=== PATIENT | female | born 1985 | race Caucasian/White ===

== ENCOUNTER 2018-11-29 07:31 | Inpatient (IN) ==
[2018-11-29] MEDS ORDERED: OXYTOCIN 30 UNITS/500 ML BAG IV PRN ×2 (08:30→08:33)
[2018-11-29 08:56] LABS: Hematocrit (blood only) 39.6 % (37-47); Hemoglobin 13.6 g/dL (12.0-16.0); Mean Corpuscular Volume 95.9 fL (80-100); Mean Platelet Volume 12.5 fL (7.4-10.4); Platelet Count 144 K/uL (130-400); RDW Coefficient of Variation 14.5 % (11.5-14.5); RDW Standard Deviation 49.7 fL (36.4-46.3); Red Blood Count 4.13 M/uL (4.2-5.4); White Blood Count 10.96 K/uL (4.8-10.8)
[2018-11-29 09:07] LABS: Mean Corpuscular Hgb Conc 34.3 g/dL (32-36)
[2018-11-29] MEDS: LACTATED RINGER'S 1,000 ML IV PRN ×3 (09:14→20:26)
--- NOTE | 2018-11-29 09:17 | History & Physical Report ---
Date of Service November 29, 2018 Assessment & Plan (1) Unfavorable cervix in term : (2) Post term over 40 weeks: Plan to start with pitocin with neal in situ. I pulled on in gently and it did not budge. Fetus category one. arom as indicated. epidural on request. anticipate . History of Present Illness Chief Complaint: induction Primary Care Provider: Nisha Mcrae MD Patient is a 32yowf G1Po with iup at 41 1/7 weeks who presents to labor and delivery for induction today secondary to postdates. Dating by lmp and first trimester ultrasound. Had neal bulb placed last night. Ntoes some bleeding with the neal and some cramping. Did not fall out. essentially uncomplicated. Patient with family hx of retinitis pigmentosa. Had [facility] [place] and baby with be evaluated in childhood. O+/ab-/pap nl/rni/rprnr/hepb-/hiv-/g/c/t-/gtt x 2 nl/qs neg/gbs neg Allergies Allergy/AdvReac Type Severity Reaction Status Date / Time No Known Drug Allergies Allergy Verified 11/28/18 10:29 Home Medications Home Medications Medication Instructions Recorded Confirmed Type 1 tab PO DAILY 11/19/18 11/29/18 History vitamin,calcium,tfmguzwr-ynbi-llmyc acid tablet Patient History Medical History History of bladder infections History of dysuria History of menorrhagia Family History Aunt Appendiceal carcinoid tumor Father Depression Grandfather (Paternal) Lung cancer Non-Hodgkin lymphoma Grandfather (Maternal) Non-Hodgkin lymphoma Social History Preferred Language: Armenian Communication Ability: Effective Manager Hris Required: No Beliefs That Will Affect Care: None marital status: Current Living Situation: Spouse Other Information That Helps Us Care for You: No Feels Safe at Home: Yes Safety Concerns: Feels Safe At This Time Smoking Status: Never smoker Second Hand Exposure: No ; Hx Alcohol Use: No Hx Substance Use: No OB History g1--present [employer] History no abnl paps, no stds Review of Systems All systems reviewed & are unremarkable except as noted in HPI & below Physical Exam Cardiovascular: Extremities: + edema (trace) Gastrointestinal (Abdomen): soft, gravid, nt Genitourinary: neal still in cx--1/l/h/firm/mid toco--danielle efm--125 with mod variability, accels to 150s no decels Results & Data Vital Signs (Past 12 Hours) Vital Signs Temp Pulse Resp BP 11/29/18 07:51 36.5 C 91 H 20 117/68 11/29/18 07:43 36.5 C 91 H 18 117/68
[2018-11-29] MEDS ORDERED: ePHEDrine sulfate 50 MG/ML AMP ONE (17:11)
[2018-11-29] MEDS ORDERED: BUPIVACAINE 0.25% 30 ML VIAL ONE (17:11)
[2018-11-29] MEDS ORDERED: fentaNYL citrate 100 MCG/2 ML VIAL ONE (17:12)
[2018-11-29] MEDS ORDERED: fentaNYL 2MCG/ML ROPIV 1.25MG/ML 100 ML BAG EPI ONE (17:12)
[2018-11-29] MEDS ORDERED: NALOXONE HCL 0.4 MG/1 ML VIAL/CARP IV PRN (17:23)
[2018-11-29] MEDS ORDERED: NALOXONE HCL 1 MG in SODIUM CHLORIDE 0.9% 1000ML 1,000 ML IV PRN (17:23)
[2018-11-29] MEDS ORDERED: ePHEDrine sulfate 50 MG/ML AMP IV PRN (17:23)
[2018-11-29] MEDS ORDERED: ONDANSETRON INJ 2 MG/ML 2 ML VIAL IV PRN (17:23)
[2018-11-29] MEDS ORDERED: DiphenhydrAMINE HCL 50 MG/ML VIAL IV PRN (17:23)
[2018-11-29] MEDS ORDERED: NALBUPHINE HCL INJ 10 MG/ML AMP IV PRN (17:23)
--- NOTE | 2018-11-29 17:25 | Anesthesiology Consultation ---
Date of Service November 29, 2018 Assessment & Plan (1) Encounter for pre-operative examination: Chart Review Chart Review: Patient NOT seen in Pre Admission Testing and Acceptable Risk for Labor Epidural Consults Requested none History Height/Weight Height: 5 ft 5 in Weight: 110.677 kg Allergies Allergy/AdvReac Type Severity Reaction Status Date / Time No Known Drug Allergies Allergy Verified 11/28/18 10:29 Medications Home Medications Medication Instructions Recorded Confirmed Last Taken 1 tab PO DAILY 11/19/18 11/29/18 Unknown vitamin,calcium,kdxkzely-smkd-bdolx acid tablet Active Medications Generic Name Dose Route Start Last Admin Trade Name Freq PRN Reason Stop Dose Admin Lactated Ringer's 1,000 mls @ 125 mls/hr 11/29/18 08:30 11/29/18 17:10 Lr IV 12/01/18 08:29 999 mls/hr .Q8H PRN Infusion L&D Protocol Protocol Oxytocin 30 units in 500 mls @ 15 mls/hr 11/29/18 08:33 11/29/18 15:00 Pitocin IV 12/01/18 08:32 0.9 units/hr .Q24H PRN 15 mls/hr Labor Induction/Augmentation Titration Protocol 0.9 UNITS/HR Past Medical History Medical History History of bladder infections History of dysuria History of menorrhagia Exercise / Class Metabolic Activity II 4-5 Yardwork/Stairs/Walk up hill Past Family History Family History Aunt Appendiceal carcinoid tumor Father Depression Grandfather (Paternal) Lung cancer Non-Hodgkin lymphoma Grandfather (Maternal) Non-Hodgkin lymphoma Past Surgical History none Past Anesthesia History No Hx of Anesthesia Complications and No Family Hx of Anesthesia Complications History of PONV No Hx of PONV and No Hx of Motion Sickness Social History Smoking Status: Never smoker Hx Alcohol Use: No Hx Substance Use: No Physical Exam Vital Signs Last Vital Signs Temp 36.9 C 11/29/18 14:56 Pulse 77 11/29/18 17:26 Resp 18 11/29/18 14:56 BP 124/69 11/29/18 17:26 Pulse Ox 100 11/29/18 17:26 Testing Laboratory Results 11/29/18 08:46
--- NOTE | 2018-11-29 18:31 | Labor Progress Brief Note ---
Date of Service November 29, 2018 Subjective comfortable after epidural Assessment & Plan (1) Post term over 40 weeks: continue pitocin for induction. fetus category one. Physical Exam Constitutional: WD/WN, vitals as above Genitourinary: cx--4/50/-2 arom--clear toco--q2-3min, pit at 15 efm--120 wtih moderate variability, accels to 150s, no decels Results & Data Vital Signs (Past 12 Hours) Vital Signs Temp Pulse Resp BP Pulse Ox 11/29/18 18:23 67 99 11/29/18 18:20 61 118/61 11/29/18 18:18 69 100 11/29/18 18:13 63 100 11/29/18 18:08 64 99 11/29/18 18:04 60 128/62 11/29/18 18:03 67 100 11/29/18 18:00 20 11/29/18 17:58 77 100 11/29/18 17:57 73 127/59 L 11/29/18 17:55 69 20 125/57 L 11/29/18 17:53 73 124/58 L 100 11/29/18 17:51 74 120/62 11/29/18 17:50 20 11/29/18 17:49 81 121/60 11/29/18 17:48 72 100 11/29/18 17:47 71 122/58 L 11/29/18 17:45 36.7 C 61 20 134/61 11/29/18 17:43 81 122/76 100 11/29/18 17:42 69 113/60 11/29/18 17:38 69 100 11/29/18 17:33 76 100 11/29/18 17:26 77 124/69 100 11/29/18 14:57 81 136/80 11/29/18 14:56 36.9 C 18 11/29/18 14:12 36.9 C 78 20 128/73 11/29/18 12:45 74 122/77 11/29/18 11:54 36.4 C L 75 20 115/56 L 11/29/18 11:10 68 129/62 11/29/18 10:15 82 20 124/72 11/29/18 09:23 83 20 121/73 11/29/18 07:51 36.5 C 91 H 20 117/68 11/29/18 07:43 36.5 C 91 H 18 117/68
--- NOTE | 2018-11-29 22:31 | Labor Progress Brief Note ---
Date of Service November 29, 2018 Subjective Reason For Note: Routine Evaluation comfortable after epidural Assessment & Plan (1) Post term over 40 weeks: continue pitocin for induction. fetus category one. Cervix unchanged - IUPC placed Physical Exam Genitourinary: Manual OB Exam: + cervical dilation 4 cm, + cervical effacement 50% and + station -2 OB Exam Monitor Tracing: + external FHT monitor used, + intra-uterine pressure catheter used and + category I Results & Data Vital Signs (Past 12 Hours) Vital Signs Temp Pulse Resp BP Pulse Ox 11/29/18 22:23 77 98 11/29/18 22:20 59 L 131/85 11/29/18 22:18 88 98 11/29/18 22:13 65 97 11/29/18 22:08 75 99 11/29/18 22:05 55 L 119/65 11/29/18 22:03 59 L 98 11/29/18 21:58 60 98 11/29/18 21:53 59 L 99 11/29/18 21:49 57 L 116/67 11/29/18 21:48 61 99 11/29/18 21:43 64 99 11/29/18 21:38 74 99 11/29/18 21:34 57 L 112/60 11/29/18 21:33 58 L 99 11/29/18 21:28 77 99 11/29/18 21:25 36.8 C 20 11/29/18 21:23 74 100 11/29/18 21:20 61 125/61 11/29/18 21:18 70 100 11/29/18 21:13 65 99 11/29/18 21:08 59 L 99 11/29/18 21:05 59 L 116/55 L 11/29/18 21:03 60 100 11/29/18 20:58 72 100 11/29/18 20:53 63 100 11/29/18 20:49 59 L 113/58 L 11/29/18 20:48 63 100 11/29/18 20:43 59 L 100 11/29/18 20:38 71 100 11/29/18 20:35 57 L 112/58 L 11/29/18 20:33 58 L 100 11/29/18 20:29 20 11/29/18 20:28 63 99 11/29/18 20:23 57 L 99 11/29/18 20:20 56 L 113/60 11/29/18 20:18 56 L 100 11/29/18 20:13 62 100 11/29/18 20:08 60 100 11/29/18 20:05 56 L 118/61 11/29/18 20:03 56 L 99 11/29/18 19:59 36.8 C 20 11/29/18 19:58 81 99 11/29/18 19:53 67 100 11/29/18 19:49 76 117/64 11/29/18 19:48 65 100 11/29/18 19:43 57 L 100 11/29/18 19:38 73 100 11/29/18 19:34 60 118/65 11/29/18 19:33 59 L 100 11/29/18 19:30 20 11/29/18 19:28 68 100 11/29/18 19:23 68 100 11/29/18 19:20 54 L 121/66 11/29/18 19:18 60 99 11/29/18 19:13 64 100 11/29/18 19:08 59 L 100 11/29/18 19:05 70 116/62 11/29/18 19:03 67 100 11/29/18 18:58 65 100 11/29/18 18:53 62 100 11/29/18 18:50 73 121/66 11/29/18 18:48 61 99 11/29/18 18:43 63 100 11/29/18 18:38 79 100 11/29/18 18:36 64 123/60 11/29/18 18:33 62 100 11/29/18 18:32 36.9 C 11/29/18 18:30 20 11/29/18 18:28 67 100 11/29/18 18:23 67 99 11/29/18 18:20 61 118/61 11/29/18 18:18 69 100 11/29/18 18:13 63 100 11/29/18 18:08 64 99 11/29/18 18:04 60 128/62 11/29/18 18:03 67 100 11/29/18 18:00 20 11/29/18 17:58 77 100 11/29/18 17:57 73 127/59 L 11/29/18 17:55 69 20 125/57 L 11/29/18 17:53 73 124/58 L 100 11/29/18 17:51 74 120/62 11/29/18 17:50 20 11/29/18 17:49 81 121/60 11/29/18 17:48 72 100 11/29/18 17:47 71 122/58 L 11/29/18 17:45 36.7 C 61 20 134/61 11/29/18 17:43 81 122/76 100 11/29/18 17:42 69 113/60 11/29/18 17:38 69 100 11/29/18 17:33 76 100 11/29/18 17:26 77 124/69 100 11/29/18 14:57 81 136/80 11/29/18 14:56 36.9 C 18 11/29/18 14:12 36.9 C 78 20 128/73 11/29/18 12:45 74 122/77 11/29/18 11:54 36.4 C L 75 20 115/56 L 11/29/18 11:10 68 129/62
--- NOTE | 2018-11-30 01:16 | Labor Progress Brief Note ---
Date of Service November 30, 2018 Subjective comfortable Assessment & Plan (1) Post term over 40 weeks: May be on the verge of making some change. cx are adequate since placement of iupc at 10:30 pm. explained to patient that as long as all remains ok, would plan to contiue current management for minimum 12 hours. They expressunderstanding. Physical Exam Constitutional: WD/WN, vitals as above Genitourinary: cx-5/75/-3, some molding toco--q2min, pit 19, mvus >200 since plaement of iupc efm--115 with mod variability, accels to 140s, no decels, +scalp stim Results & Data Vital Signs (Past 12 Hours) Vital Signs Temp Pulse Resp BP Pulse Ox 11/30/18 01:08 79 98 11/30/18 01:05 81 138/81 11/30/18 01:03 81 100 11/30/18 00:58 69 98 11/30/18 00:53 69 98 11/30/18 00:49 61 119/76 11/30/18 00:48 58 L 98 11/30/18 00:43 66 98 11/30/18 00:38 83 98 11/30/18 00:35 60 122/74 11/30/18 00:33 65 97 11/30/18 00:28 65 97 11/30/18 00:23 58 L 97 11/30/18 00:19 70 127/73 11/30/18 00:18 69 97 11/30/18 00:13 80 98 11/30/18 00:08 82 98 11/30/18 00:04 81 126/76 11/30/18 00:03 76 98 11/30/18 00:00 36.9 C 20 11/29/18 23:58 70 98 11/29/18 23:53 65 97 11/29/18 23:50 68 119/72 11/29/18 23:48 66 98 11/29/18 23:43 59 L 96 11/29/18 23:38 67 97 11/29/18 23:35 80 117/69 11/29/18 23:33 57 L 98 11/29/18 23:30 20 11/29/18 23:28 73 98 11/29/18 23:23 57 L 97 11/29/18 23:20 58 L 123/70 11/29/18 23:18 55 L 96 11/29/18 23:13 82 98 11/29/18 23:08 63 96 11/29/18 23:04 76 123/71 11/29/18 23:03 59 L 96 11/29/18 22:58 67 97 11/29/18 22:53 74 96 11/29/18 22:50 36.7 C 71 20 123/72 11/29/18 22:48 81 99 11/29/18 22:43 64 98 11/29/18 22:38 69 98 11/29/18 22:35 70 123/73 11/29/18 22:33 61 97 11/29/18 22:28 60 99 11/29/18 22:23 77 98 11/29/18 22:20 59 L 131/85 11/29/18 22:18 88 98 11/29/18 22:13 65 97 11/29/18 22:08 75 99 11/29/18 22:05 55 L 119/65 11/29/18 22:03 59 L 98 11/29/18 21:58 60 98 11/29/18 21:53 59 L 99 11/29/18 21:49 57 L 116/67 11/29/18 21:48 61 99 11/29/18 21:43 64 99 11/29/18 21:38 74 99 11/29/18 21:34 57 L 112/60 11/29/18 21:33 58 L 99 11/29/18 21:28 77 99 11/29/18 21:25 36.8 C 20 11/29/18 21:23 74 100 11/29/18 21:20 61 125/61 11/29/18 21:18 70 100 11/29/18 21:13 65 99 11/29/18 21:08 59 L 99 11/29/18 21:05 59 L 116/55 L 11/29/18 21:03 60 100 11/29/18 20:58 72 100 11/29/18 20:53 63 100 11/29/18 20:49 59 L 113/58 L 11/29/18 20:48 63 100 11/29/18 20:43 59 L 100 11/29/18 20:38 71 100 11/29/18 20:35 57 L 112/58 L 11/29/18 20:33 58 L 100 11/29/18 20:29 20 11/29/18 20:28 63 99 11/29/18 20:23 57 L 99 11/29/18 20:20 56 L 113/60 11/29/18 20:18 56 L 100 11/29/18 20:13 62 100 11/29/18 20:08 60 100 11/29/18 20:05 56 L 118/61 11/29/18 20:03 56 L 99 11/29/18 19:59 36.8 C 20 11/29/18 19:58 81 99 11/29/18 19:53 67 100 11/29/18 19:49 76 117/64 11/29/18 19:48 65 100 11/29/18 19:43 57 L 100 11/29/18 19:38 73 100 11/29/18 19:34 60 118/65 11/29/18 19:33 59 L 100 11/29/18 19:30 20 11/29/18 19:28 68 100 11/29/18 19:23 68 100 11/29/18 19:20 54 L 121/66 11/29/18 19:18 60 99 11/29/18 19:13 64 100 11/29/18 19:08 59 L 100 11/29/18 19:05 70 116/62 11/29/18 19:03 67 100 11/29/18 18:58 65 100 11/29/18 18:53 62 100 11/29/18 18:50 73 121/66 11/29/18 18:48 61 99 11/29/18 18:43 63 100 11/29/18 18:38 79 100 11/29/18 18:36 64 123/60 11/29/18 18:33 62 100 11/29/18 18:32 36.9 C 11/29/18 18:30 20 11/29/18 18:28 67 100 11/29/18 18:23 67 99 11/29/18 18:20 61 118/61 11/29/18 18:18 69 100 11/29/18 18:13 63 100 11/29/18 18:08 64 99 11/29/18 18:04 60 128/62 11/29/18 18:03 67 100 11/29/18 18:00 20 08/08/19 17:58 77 100 11/29/18 17:57 73 127/59 L 11/29/18 17:55 69 20 125/57 L 11/29/18 17:53 73 124/58 L 100 11/29/18 17:51 74 120/62 11/29/18 17:50 20 11/29/18 17:49 81 121/60 11/29/18 17:48 72 100 11/29/18 17:47 71 122/58 L 11/29/18 17:45 36.7 C 61 20 134/61 11/29/18 17:43 81 122/76 100 11/29/18 17:42 69 113/60 11/29/18 17:38 69 100 11/29/18 17:33 76 100 11/29/18 17:26 77 124/69 100 11/29/18 14:57 81 136/80 11/29/18 14:56 36.9 C 18 11/29/18 14:12 36.9 C 78 20 128/73
[2018-11-30] MEDS ORDERED: Nursing to Pharmacy Communication ONE ×2 (02:34→04:07)
[2018-11-30] MEDS: fentaNYL 2MCG/ML ROPIV 1.25MG/ML 100 ML BAG EPI PRN ×2 (03:25→04:01)
[2018-11-30] MEDS: LACTATED RINGER'S 1,000 ML IV PRN (04:00)
--- NOTE | 2018-11-30 05:05 | Labor Progress Brief Note ---
Date of Service November 30, 2018 Subjective noting some pressure in her right hip Assessment & Plan (1) Post term over 40 weeks: Hold pit here. Finally making progress and coming down. Fetus overall reassuring. Promising change. Physical Exam Constitutional: WD/WN, vitals as above Genitourinary: cx--8/100/0 toco--q2-4 min, some coupling, pit at 29 efm--120s with mod variability , small accels, variables with some contractions, +scalp stim Results & Data Vital Signs (Past 12 Hours) Vital Signs Temp Pulse Resp BP Pulse Ox 11/30/18 04:58 62 97 11/30/18 04:53 59 L 96 11/30/18 04:49 68 112/58 L 11/30/18 04:48 68 99 11/30/18 04:43 67 98 11/30/18 04:38 80 97 11/30/18 04:35 72 124/69 11/30/18 04:33 75 98 11/30/18 04:28 71 99 11/30/18 04:23 61 99 11/30/18 04:19 70 129/68 11/30/18 04:18 63 96 11/30/18 04:16 36.9 C 20 11/30/18 04:13 62 98 11/30/18 04:08 63 98 11/30/18 04:05 73 130/59 L 11/30/18 04:03 77 98 11/30/18 03:58 86 99 11/30/18 03:53 66 96 11/30/18 03:49 67 124/71 11/30/18 03:48 77 99 11/30/18 03:43 71 98 11/30/18 03:38 60 97 11/30/18 03:34 68 120/73 11/30/18 03:33 60 98 11/30/18 03:28 76 99 11/30/18 03:23 72 99 11/30/18 03:20 37.1 C 20 11/30/18 03:19 68 133/80 11/30/18 03:18 84 99 11/30/18 03:13 66 98 11/30/18 03:08 75 99 11/30/18 03:04 73 136/82 11/30/18 03:03 72 98 11/30/18 02:58 68 98 11/30/18 02:53 62 98 11/30/18 02:50 65 139/77 11/30/18 02:48 61 98 11/30/18 02:43 75 98 11/30/18 02:38 73 98 11/30/18 02:35 72 134/81 11/30/18 02:33 74 99 11/30/18 02:30 18 11/30/18 02:28 67 96 11/30/18 02:23 68 96 11/30/18 02:19 71 126/78 11/30/18 02:18 70 97 11/30/18 02:13 74 97 11/30/18 02:08 63 97 11/30/18 02:05 79 128/75 11/30/18 02:03 75 97 11/30/18 02:00 20 11/30/18 01:58 65 97 11/30/18 01:53 69 96 11/30/18 01:49 69 128/77 11/30/18 01:48 66 97 11/30/18 01:43 69 98 11/30/18 01:38 63 97 11/30/18 01:34 64 128/77 11/30/18 01:33 77 97 11/30/18 01:28 79 97 11/30/18 01:23 65 97 11/30/18 01:20 74 134/76 11/30/18 01:18 88 98 11/30/18 01:13 74 98 11/30/18 01:10 36.7 C 20 11/30/18 01:08 79 98 11/30/18 01:05 81 138/81 11/30/18 01:03 81 100 11/30/18 00:58 69 98 11/30/18 00:53 69 98 11/30/18 00:49 61 119/76 11/30/18 00:48 58 L 98 11/30/18 00:43 66 98 11/30/18 00:38 83 98 11/30/18 00:35 60 122/74 11/30/18 00:33 65 97 11/30/18 00:28 65 97 11/30/18 00:23 58 L 97 11/30/18 00:19 70 127/73 11/30/18 00:18 69 97 11/30/18 00:13 80 98 11/30/18 00:08 82 98 08/09/19 00:04 81 126/76 11/30/18 00:03 76 98 11/30/18 00:00 36.9 C 20 11/29/18 23:58 70 98 11/29/18 23:53 65 97 11/29/18 23:50 68 119/72 11/29/18 23:48 66 98 11/29/18 23:43 59 L 96 11/29/18 23:38 67 97 11/29/18 23:35 80 117/69 11/29/18 23:33 57 L 98 11/29/18 23:30 20 11/29/18 23:28 73 98 11/29/18 23:23 57 L 97 11/29/18 23:20 58 L 123/70 11/29/18 23:18 55 L 96 11/29/18 23:13 82 98 11/29/18 23:08 63 96 11/29/18 23:04 76 123/71 11/29/18 23:03 59 L 96 11/29/18 22:58 67 97 11/29/18 22:53 74 96 11/29/18 22:50 36.7 C 71 20 123/72 11/29/18 22:48 81 99 11/29/18 22:43 64 98 11/29/18 22:38 69 98 11/29/18 22:35 70 123/73 11/29/18 22:33 61 97 11/29/18 22:28 60 99 11/29/18 22:23 77 98 11/29/18 22:20 59 L 131/85 11/29/18 22:18 88 98 11/29/18 22:13 65 97 11/29/18 22:08 75 99 11/29/18 22:05 55 L 119/65 11/29/18 22:03 59 L 98 11/29/18 21:58 60 98 11/29/18 21:53 59 L 99 11/29/18 21:49 57 L 116/67 11/29/18 21:48 61 99 11/29/18 21:43 64 99 11/29/18 21:38 74 99 11/29/18 21:34 57 L 112/60 11/29/18 21:33 58 L 99 11/29/18 21:28 77 99 11/29/18 21:25 36.8 C 20 11/29/18 21:23 74 100 11/29/18 21:20 61 125/61 11/29/18 21:18 70 100 11/29/18 21:13 65 99 11/29/18 21:08 59 L 99 11/29/18 21:05 59 L 116/55 L 11/29/18 21:03 60 100 11/29/18 20:58 72 100 11/29/18 20:53 63 100 11/29/18 20:49 59 L 113/58 L 11/29/18 20:48 63 100 11/29/18 20:43 59 L 100 11/29/18 20:38 71 100 11/29/18 20:35 57 L 112/58 L 11/29/18 20:33 58 L 100 11/29/18 20:29 20 11/29/18 20:28 63 99 11/29/18 20:23 57 L 99 11/29/18 20:20 56 L 113/60 11/29/18 20:18 56 L 100 11/29/18 20:13 62 100 11/29/18 20:08 60 100 11/29/18 20:05 56 L 118/61 11/29/18 20:03 56 L 99 11/29/18 19:59 36.8 C 20 11/29/18 19:58 81 99 11/29/18 19:53 67 100 11/29/18 19:49 76 117/64 11/29/18 19:48 65 100 11/29/18 19:43 57 L 100 11/29/18 19:38 73 100 11/29/18 19:34 60 118/65 11/29/18 19:33 59 L 100 11/29/18 19:30 20 11/29/18 19:28 68 100 11/29/18 19:23 68 100 11/29/18 19:20 54 L 121/66 11/29/18 19:18 60 99 11/29/18 19:13 64 100 11/29/18 19:08 59 L 100 11/29/18 19:05 70 116/62 11/29/18 19:03 67 100 11/29/18 18:58 65 100 11/29/18 18:53 62 100 11/29/18 18:50 73 121/66 11/29/18 18:48 61 99 11/29/18 18:43 63 100 11/29/18 18:38 79 100 11/29/18 18:36 64 123/60 11/29/18 18:33 62 100 11/29/18 18:32 36.9 C 11/29/18 18:30 20 11/29/18 18:28 67 100 11/29/18 18:23 67 99 11/29/18 18:20 61 118/61 11/29/18 18:18 69 100 11/29/18 18:13 63 100 11/29/18 18:08 64 99 11/29/18 18:04 60 128/62 11/29/18 18:03 67 100 11/29/18 18:00 20 11/29/18 17:58 77 100 11/29/18 17:57 73 127/59 L 11/29/18 17:55 69 20 125/57 L 11/29/18 17:53 73 124/58 L 100 11/29/18 17:51 74 120/62 11/29/18 17:50 20 11/29/18 17:49 81 121/60 11/29/18 17:48 72 100 11/29/18 17:47 71 122/58 L 11/29/18 17:45 36.7 C 61 20 134/61 11/29/18 17:43 81 122/76 100 11/29/18 17:42 69 113/60 11/29/18 17:38 69 100 11/29/18 17:33 76 100 11/29/18 17:26 77 124/69 100
--- NOTE | 2018-11-30 08:55 | Labor Progress Brief Note ---
Date of Service November 30, 2018 Subjective Reason For Note: Routine Evaluation feels pressure Assessment & Plan (1) Post term over 40 weeks: begin 2nd stage, fhts categ 2 Physical Exam Constitutional: WD/WN, vitals as above Genitourinary: Manual OB Exam: + cervical dilation 10 cm, + cervical effacement 100% and + station + 3 OB Exam Monitor Tracing: + external FHT monitor used (130 mod variability, variables), + external uterine monitor used (q2-3) and + category II Results & Data Vital Signs (Past 12 Hours) Vital Signs Temp Pulse Resp BP Pulse Ox 11/30/18 08:49 99 H 134/73 11/30/18 08:47 87 100 11/30/18 08:42 64 98 11/30/18 08:37 59 L 98 11/30/18 08:35 75 105/57 L 11/30/18 08:32 58 L 98 11/30/18 08:27 69 100 11/30/18 08:22 73 99 11/30/18 08:20 65 119/57 L 11/30/18 08:17 69 98 11/30/18 08:12 69 98 11/30/18 08:07 76 98 11/30/18 08:02 74 99 11/30/18 07:57 70 99 11/30/18 07:52 74 98 11/30/18 07:50 69 126/71 11/30/18 07:47 64 97 11/30/18 07:42 66 99 11/30/18 07:37 61 98 11/30/18 07:34 68 120/65 11/30/18 07:32 66 97 11/30/18 07:27 65 98 11/30/18 07:22 61 98 11/30/18 07:19 74 120/63 11/30/18 07:17 63 98 11/30/18 07:12 76 99 11/30/18 07:07 73 99 11/30/18 07:04 100.0 F H 75 16 137/68 11/30/18 06:58 77 99 11/30/18 06:53 76 98 11/30/18 06:49 71 125/67 11/30/18 06:48 63 99 11/30/18 06:43 67 100 11/30/18 06:38 78 99 11/30/18 06:35 75 127/65 08/09/19 06:33 64 98 11/30/18 06:30 20 11/30/18 06:28 70 99 11/30/18 06:23 69 98 11/30/18 06:20 55 L 134/65 11/30/18 06:18 64 98 11/30/18 06:13 61 98 11/30/18 06:08 62 98 11/30/18 06:04 61 119/66 11/30/18 06:03 63 98 11/30/18 06:00 20 11/30/18 05:58 64 98 11/30/18 05:53 78 98 11/30/18 05:50 75 112/65 11/30/18 05:48 74 99 11/30/18 05:43 81 99 11/30/18 05:38 78 99 11/30/18 05:35 82 130/66 11/30/18 05:33 75 97 11/30/18 05:28 67 98 11/30/18 05:23 66 98 11/30/18 05:19 73 121/63 11/30/18 05:18 98.4 F 64 20 97 11/30/18 05:13 74 97 11/30/18 05:08 81 98 11/30/18 05:03 70 98 11/30/18 04:58 62 97 11/30/18 04:53 59 L 96 11/30/18 04:49 68 112/58 L 11/30/18 04:48 68 99 11/30/18 04:43 67 98 11/30/18 04:38 80 97 11/30/18 04:35 72 124/69 11/30/18 04:33 75 98 11/30/18 04:28 71 99 11/30/18 04:23 61 99 11/30/18 04:19 70 129/68 11/30/18 04:18 63 96 11/30/18 04:16 98.4 F 20 11/30/18 04:13 62 98 11/30/18 04:08 63 98 11/30/18 04:05 73 130/59 L 11/30/18 04:03 77 98 11/30/18 03:58 86 99 11/30/18 03:53 66 96 11/30/18 03:49 67 124/71 11/30/18 03:48 77 99 08/09/19 03:43 71 98 11/30/18 03:38 60 97 11/30/18 03:34 68 120/73 11/30/18 03:33 60 98 11/30/18 03:28 76 99 11/30/18 03:23 72 99 11/30/18 03:20 98.8 F 20 11/30/18 03:19 68 133/80 11/30/18 03:18 84 99 11/30/18 03:13 66 98 11/30/18 03:08 75 99 11/30/18 03:04 73 136/82 11/30/18 03:03 72 98 11/30/18 02:58 68 98 11/30/18 02:53 62 98 11/30/18 02:50 65 139/77 11/30/18 02:48 61 98 11/30/18 02:43 75 98 11/30/18 02:38 73 98 11/30/18 02:35 72 134/81 11/30/18 02:33 74 99 11/30/18 02:30 18 11/30/18 02:28 67 96 11/30/18 02:23 68 96 11/30/18 02:19 71 126/78 11/30/18 02:18 70 97 11/30/18 02:13 74 97 11/30/18 02:08 63 97 11/30/18 02:05 79 128/75 11/30/18 02:03 75 97 11/30/18 02:00 20 11/30/18 01:58 65 97 11/30/18 01:53 69 96 11/30/18 01:49 69 128/77 11/30/18 01:48 66 97 11/30/18 01:43 69 98 11/30/18 01:38 63 97 11/30/18 01:34 64 128/77 11/30/18 01:33 77 97 11/30/18 01:28 79 97 11/30/18 01:23 65 97 11/30/18 01:20 74 134/76 11/30/18 01:18 88 98 11/30/18 01:13 74 98 11/30/18 01:10 98.1 F 20 11/30/18 01:08 79 98 11/30/18 01:05 81 138/81 11/30/18 01:03 81 100 11/30/18 00:58 69 98 11/30/18 00:53 69 98 11/30/18 00:49 61 119/76 11/30/18 00:48 58 L 98 11/30/18 00:43 66 98 11/30/18 00:38 83 98 11/30/18 00:35 60 122/74 11/30/18 00:33 65 97 11/30/18 00:28 65 97 11/30/18 00:23 58 L 97 11/30/18 00:19 70 127/73 11/30/18 00:18 69 97 11/30/18 00:13 80 98 11/30/18 00:08 82 98 11/30/18 00:04 81 126/76 11/30/18 00:03 76 98 11/30/18 00:00 98.4 F 20 11/29/18 23:58 70 98 11/29/18 23:53 65 97 11/29/18 23:50 68 119/72 11/29/18 23:48 66 98 11/29/18 23:43 59 L 96 11/29/18 23:38 67 97 11/29/18 23:35 80 117/69 11/29/18 23:33 57 L 98 11/29/18 23:30 20 11/29/18 23:28 73 98 11/29/18 23:23 57 L 97 11/29/18 23:20 58 L 123/70 11/29/18 23:18 55 L 96 11/29/18 23:13 82 98 11/29/18 23:08 63 96 11/29/18 23:04 76 123/71 11/29/18 23:03 59 L 96 11/29/18 22:58 67 97 11/29/18 22:53 74 96 11/29/18 22:50 98.1 F 71 20 123/72 11/29/18 22:48 81 99 11/29/18 22:43 64 98 11/29/18 22:38 69 98 11/29/18 22:35 70 123/73 11/29/18 22:33 61 97 11/29/18 22:28 60 99 11/29/18 22:23 77 98 11/29/18 22:20 59 L 131/85 11/29/18 22:18 88 98 11/29/18 22:13 65 97 11/29/18 22:08 75 99 11/29/18 22:05 55 L 119/65 11/29/18 22:03 59 L 98 11/29/18 21:58 60 98 11/29/18 21:53 59 L 99 11/29/18 21:49 57 L 116/67 11/29/18 21:48 61 99 11/29/18 21:43 64 99 11/29/18 21:38 74 99 11/29/18 21:34 57 L 112/60 11/29/18 21:33 58 L 99 11/29/18 21:28 77 99 11/29/18 21:25 98.2 F 20 11/29/18 21:23 74 100 11/29/18 21:20 61 125/61 11/29/18 21:18 70 100 11/29/18 21:13 65 99 11/29/18 21:08 59 L 99 11/29/18 21:05 59 L 116/55 L 11/29/18 21:03 60 100 11/29/18 20:58 72 100
[2018-11-30] MEDS ORDERED: BENZOCAINE 20% AER SPR 82.5 GM CAN EXT PRN (09:24)
[2018-11-30] MEDS ORDERED: OXYCODONE/ACETAMINOPHEN 5mg/325mg TAB PO PRN (09:24)
[2018-11-30] MEDS ORDERED: SUPERCREAM 0.870% 15 GM JAR EXT PRN (09:24)
[2018-11-30] MEDS ORDERED: ACETAMINOPHEN 325 MG TAB PO PRN (09:24)
[2018-11-30] MEDS ORDERED: HYDROCORTISONE ACETATE 25 MG SUPP PR PRN (09:24)
[2018-11-30] MEDS ORDERED: DIPHTHERIA/TETANUS/PERTUSSIS 0.5 ML SYR/VIAL IM ONE (09:41)
[2018-11-30] MEDS ORDERED: OXYTOCIN 30 UNITS/500 ML BAG IV PRN (09:41)
--- NOTE | 2018-11-30 10:52 | Delivery Summary ---
DATE OF OPERATION: 11/30/2018 The patient dilated to complete and pushed to deliver a viable male , Apgars 9 and 10 via over partial third-degree perineal laceration. Mouth and nose were bulb suctioned at the perineum. Loose nuchal cord x1 reduced with ease. Shoulders and body were delivered with ease. The infant was vigorous and crying at . Cord was clamped at approximately 30 seconds of life and infant to maternal abdomen where the cord was then doubly clamped and cut. Placenta delivered spontaneously and intact, 3-vessel cord. Hemostasis achieved with dilute Pitocin and uterine massage. Cervix and sulci intact. Laceration repaired in the usual fashion with 2-0 and 3-0 Vicryl sutures. EBL 300 mL. Mother and baby stable in recovery. I attest to the content of the Intraoperative Record and any orders documented therein. Any exception s are noted below.
--- NOTE | 2018-11-30 10:56 | Anesthesia Procedure Note ---
Date of Service November 30, 2018 Anesthesia Post Epidural Note Vital Signs Vital Signs: Temp Pulse Resp BP Pulse Ox 37.1 C 88 20 110/60 99 11/30/18 08:49 11/30/18 10:49 11/30/18 10:06 11/30/18 10:49 11/30/18 09:02 Pain Intensity Right Abdomen: Pain Intensity: 0 Notes Mental Status: alert / awake / arousable and participated in evaluation Nausea / Vomiting: adequately controlled Pain: adequately controlled Airway Patency, RR, SpO2: stable & adequate BP & HR: stable & adequate Hydration State: stable & adequate Neuraxial Anesthesia: was administered and sensory block is resolving Anesthetic Complications: no major complications apparent and Pt Satisfied with anesthetic care Epidural: Removed without complications and With tip intact
[2018-11-30] MEDS: IBUPROFEN 600 MG TAB PO PRN (18:14)
[2018-11-30] MEDS: DOCUSATE SODIUM 100 MG CAP PO SCH (21:14)
[2018-12-01] MEDS: IBUPROFEN 600 MG TAB PO PRN ×3 (05:52→23:06)
[2018-12-01] MEDS: DOCUSATE SODIUM 100 MG CAP PO SCH ×2 (08:50→19:53)
[2018-12-01] MEDS: PRENATAL VITAMIN 1 TAB PO SCH (08:50)
--- NOTE | 2018-12-01 08:57 | Obstetrical Progress Note ---
Date of Service December 01, 2018 Assessment & Plan (1) Normal delivery at term: (2) Third degree perineal laceration: doing well routine care, stable. enc to cont nursing. Subjective Ambulation: ambulating normally Voiding: no voiding problems Diet Tolerance:: regular diet Lochia:: Small Feeding Type:: breast feeding concerned about baby burping but otherwise doing well. bottom sore Physical Exam Constitutional WD/WN, vitals as above Respiratory normal respiratory effort, lungs clear to auscultation Cardiovascular Rate/Rhythm: regular rate and regular rhythm Gastrointestinal (Abdomen) Inspection/Auscultation: abdomen normal to inspection Percussion/Palpation: abdomen soft Fundus firm 2cm down Neurologic grossly normal Psychiatric A+Ox3, euthymic affect Results & Data Vital Signs (Past 12 Hours) Vital Signs Temp Pulse Resp BP 12/01/18 03:25 97.7 F 89 18 100/72 11/30/18 23:55 97.9 F 86 18 110/66
[2018-12-01] MEDS ORDERED: BISACODYL 5 MG TABEC PO SCH (20:00)
[2018-12-02 06:22] LABS: Hematocrit (blood only) 30.7 % (37-47); Hemoglobin 10.5 g/dL (12.0-16.0)
--- NOTE | 2018-12-02 06:38 | Obstetrical Progress Note ---
Date of Service December 02, 2018 Assessment & Plan (1) Post term over 40 weeks: (2) Third degree perineal laceration: (3) Normal delivery at term: doing well, stable for d/c home. f/u 6wks pp check. instructions reviewed. discussed and enc . Day #:: 2 Subjective Ambulation: ambulating normally Voiding: no voiding problems Diet Tolerance:: regular diet Lochia:: Small Feeding Type:: breast feeding doing well. having some breast feeding concerns and so was supplementing with formula. considering pumping. did see communication consultant. Physical Exam Constitutional WD/WN, vitals as above Respiratory normal respiratory effort, lungs clear to auscultation Cardiovascular Rate/Rhythm: regular rate and regular rhythm Gastrointestinal (Abdomen) Inspection/Auscultation: abdomen normal to inspection Percussion/Palpation: abdomen soft fundus firm 1 cm below umbilicus Musculoskeletal nt calves Neurologic grossly normal Psychiatric A+Ox3, euthymic affect Results & Data Vital Signs (Past 12 Hours) Vital Signs Temp Pulse Resp BP Pulse Ox 12/01/18 23:09 98.4 F 89 18 125/71 99 12/01/18 19:48 97.9 F 82 16 114/73 100
[2018-12-02] MEDS ORDERED: MEASLES, MUMPS & RUBELLA VIRUS VIAL SQ ONE (09:23)
[2018-12-02] MEDS: DOCUSATE SODIUM 100 MG CAP PO SCH (09:33)
[2018-12-02] MEDS: PRENATAL VITAMIN 1 TAB PO SCH (09:33)
[2018-12-02] MEDS: IBUPROFEN 600 MG TAB PO PRN (09:33)
== END 2018-12-02 10:43 | disposition home or self-care (01) | DRG 768 ==
LOC: 4S1 07:31 → 4N 11-30 11:38